=== PATIENT | female | born 1970 | race Two or more races ===

== ENCOUNTER 2024-11-18 11:31 | Emergency (ER) | payer MEDICARE ==
[2024-11-18 11:38] VITALS: TEMP 98.2
[2024-11-18] MEDS: KETOROLAC 15 MG/ML 1 ML VIAL IVP STA (12:53)
[2024-11-18] MEDS: SODIUM CHLORIDE 0.9% 1,000 ML IV STA (12:53)
[2024-11-18] MEDS: methylPREDNISolone SOD SUCCI 125 MG/2 ML VIAL IV STA (12:55)
[2024-11-18] MEDS: LIDOCAINE 4% PATCH TOPICAL STA (12:57)
[2024-11-18 13:13] LABS: ALT 16 U/L (4-34); African American GFR (CKD) >90 (>60 ml/min/1.73 sqM); Albumin 4.3 g/dL (3.5-5.0); Anion Gap 7 mmol/L; Blood Urea Nitrogen 12 mg/dL (7-17); Calcium 9.6 mg/dL (8.4-10.2); Carbon Dioxide 25 mmol/L (22-30); Chloride 108 mmol/L (98-107); Glucose 98 mg/dL (74-99); Lipase 232 U/L (23-300); Non-African American GFR(CKD) >90 (>60 ml/min/1.73 sqM); Sodium 140 mmol/L (137-145); Total Bilirubin 1.2 mg/dL (0.2-1.3)
[2024-11-18 13:15] LABS: AST 38 U/L (14-36); Alkaline Phosphatase 34 U/L (38-126); Potassium 4.7 mmol/L (3.5-5.1)
--- NOTE | 2024-11-18 13:37 | CT ---
EXAMINATION TYPE: CT abdomen pelvis wo con DATE OF EXAM: 11/18/2024 COMPARISON: None CLINICAL INDICATION: Female, 54 years old with history of right back/flank pain; PHH, Right back and fkank pain TECHNIQUE: CT scan of the abdomen and pelvis is performed without oral or IV contrast. CT DLP: [address] CTDI: mGy Automated exposure control for dose reduction was used. FINDINGS: Within the limitations of a non-contrast study, the following observations are made. There is a tight cluster of small nodules in the right lower lobe posteriorly. The largest nodule in the cluster is approximately 6.6 mm. This is most likely infectious in CT thorax may be indicated. Gallbladder is normal and there is no gallstone, wall thickening, pericholecystic fluid or distentio n. There is no biliary ductal dilatation. There is no organomegaly of the liver, pancreas, spleen or adrenal glands. There are no renal calcifications or hydronephrosis. The caliber of the abdominal aorta is normal and there is no retroperitoneal adenopathy or hemorrhage . The bowel loops are normal in caliber is no evidence of obstruction. No inflammatory changes are iden tified in the mesentery and there is no free intraperitoneal air or fluid. There is no pelvic mass, free fluid, abscess or adenopathy. The appendix is visualized and is normal. The osseous structures and soft tissues are unremarkable. IMPRESSION: 1.No acute changes within the abdomen or pelvis. 2. Small cluster of small nodules in the right lower lobe posteriorly. This is a nonspecific finding and could represent acute or chronic inflammatory process. If clinically indicated CT thorax to evalu ate the lung parenchyma in its entirety is recommended. [facility], Workstation: EVER 11/18/2024 1:35 PM
--- NOTE | 2024-11-18 13:43 | CT ---
EXAMINATION TYPE: CT lumbar spine wo con DATE OF EXAM: 11/18/2024 1:22 PM COMPARISON: None CLINICAL INDICATION: Female, 54 years old with history of right back/flank pain; PHH, Right back and flank pain TECHNIQUE: Unenhanced CT of the lumbar spine was performed. Bone and soft tissue window settings are submitted as well as coronal and sagittal reconstructions. CT DLP: [address] CTDI: mGy Automated exposure control for dose reduction was used. FINDINGS: The lumbar vertebral segments are normal in height and alignment and there is no fracture or subluxat ion. There is mild disc space narrowing and hypertrophic spurring at L4-5 consistent with mild degenerativ e disc disease. There is right lateral broad-based disc bulge at the L4-5 level mildly compromising t he right L4-5 neural foramina. There is no bony encroachment of neural foramina. There is no central canal stenosis. The paraspinal soft tissues are unremarkable. There is no significant facet degeneration. The visualized sacrum and SI joints are normal. IMPRESSION: Mild degenerative disease at the L4-5 level with mild encroachment of the right L4-5 neural foramina secondary to broad-based right lateral disc protrusion. [facility], , 11/18/2024 1:41 PM
[2024-11-18 14:16] LABS: Basophils # (A) 0.06 10*3/uL (0.00-0.10); Basophils % (A) 0.8 %; Eosinophils # (A) 0.09 10*3/uL (0.04-0.35); Eosinophils % (A) 1.2 %; HCT 39.6 % (37.2-46.3); HGB 13.6 g/dL (12.0-15.0); Lymphocytes # (A) 2.13 10*3/uL (0.90-5.00); MCH 30.8 pg (27.0-32.0); MCHC 34.3 g/dL (32.0-37.0); MCV 89.8 fL (80.0-97.0); Mean Platelet Volume 11.6 fL (9.5-12.2); Monocytes # (A) 0.38 10*3/uL (0.20-1.00); Monocytes % (A) 5.2 %; Neutrophils # (A) 4.66 10*3/uL (1.80-7.70); Neutrophils % (A) 63.5 %; Platelet Count 171 10*3/uL (140-440); RBC 4.41 10*6/uL (4.10-5.20); WBC 7.34 10*3/uL (4.50-10.00)
--- NOTE | 2024-11-18 14:40 | ED ---
General Adult HPI - General Chief complaint: Back Pain/Injury Stated complaint: back pain Time Seen by Provider: 11/18/24 12:15 Source: patient, RN notes reviewed, old records reviewed Mode of arrival: ambulatory Limitations: no limitations - History of Present Illness Initial comments: Patient is a 54-year-old female presents emergency department complaining of atraumatic right sided back pain. Has a history of sciatica on that side but st ates this seems worse. States it radiates down the posterior right leg as well as up the right side of her back towards her mid back. Does endorse worse with movement. No obvious dysuria or hematuria. No vaginal discharge or bleeding. States it does radiate into her right flank mildly. Denies any nausea or vomiting. Denies any headaches or weakness. No obvious injuries. Has a history of anemia. Originally was seen at urgent care who recommended coming here for further workup. Urinalysis done at urgent care was normal. Has a history of chronic back pain but states this is different and somewhat worse.Patient denies any red flag symptoms, including denying lower extremity paralysis, denying saddle paresthesias, denying urinary or bowel incontinence or retention. - Related Data Previous Rx's Medication Instructions Recorded Cyclobenzaprine [Flexeril] 5 mg PO TID PRN 5 Days #15 tablet 11/18/24 Lidocaine 5% Patch [Lidoderm 5% 1 patch TOPICAL DAILY PRN 14 Days 11/18/24 Patch] #14 patch Allergies Allergy/AdvReac Type Severity Reaction Status Date / Time morphine Allergy Rash/Hives Verified 11/18/24 11:38 Review of Systems ROS Statement: Those systems with pertinent positive or pertinent negative responses have been documented in the HPI. Review of Systems: CONST: Denies fever EYES: Denies blurry vision ENT: Denies nasal congestion C/V: Denies Chest pain RESP: Denies shortness of breath GI: Denies abdominal pain : Denies dysuria SKIN: Denies rash. MSK: Endorses back pain NEURO: Denies headache ROS Other: All systems not noted in ROS Statement are negative. Past Medical History Additional Past Medical History / Comment(s): autoimmune anemia History of Any Multi-Drug Resistant Organisms: None Reported Past Psychological History: ADD/ADHD, Anxiety, Depression, PTSD Smoking Status: Vaper Past Alcohol Use History: None Reported Past Drug Use History: Marijuana General Exam - General Exam Comments Initial Comments: General: Appears in mild distress secondary to back pain. HEAD: Normal with no signs of head trauma. EYES: EOMI ENT: Hearing grossly intact, normal oropharynx. RESPIRATORY: Clear breath sounds bilaterally. No wheezes, rales, or rhonchi. C/V: Regular rate and rhythm. S1 and S2 auscultated, peripheral pulses 2+ and i ntact throughout ABD: Abdomen is soft, nondistended. No significant flank tenderness. No guarding or rebound tenderness. No peritoneal signs. EXT: Normal range of motion, no obvious deformity. Mild midline lower lumbar spine tenderness to palpation. No step-offs or deformities appreciated. No thoracic or cervical spine tenderness to palpation. SKIN: No rashes or lesions observed on exposed skin. NEURO: Alert and oriented x 4. No focal deficits. Limitations: no limitations Course Vital Signs 11/18/24 11/18/24 11:33 14:54 Temperature 98.2 F 98.2 F Pulse Rate 60 74 Respiratory 18 20 Rate Blood Pressure 131/78 129/78 O2 Sat by Pulse 98 99 Oximetry Medical Decision Making - Medical Decision Making Was pt. sent in by a medical professional or institution (, PA, DOOR SLINGER, urgent care, hospital, or longterm...) When possible be specific @ -Sent by urgent care for further evaluation for back pain. Did you speak to anyone other than the patient for history (EMS, parent, family, police, friend...)? What history was obtained from this source @ -No Did you review nursing and triage notes (agree or disagree)? Why? @ -I reviewed and agree with nursing and triage notes Were old charts reviewed (outside hosp., previous admission, EMS record, old EKG, old radiological studies, urgent care reports/EKG's, longterm records)? Report findings @ -No old charts were reviewed Differential Diagnosis (chest pain, altered mental status, abdominal pain women, abdominal pain men, vaginal bleeding, weakness, fever, dyspnea, syncope, headache, dizziness, GI bleed, back pain, seizure, CVA, palpatations, mental health, musculoskeletal)? @ -Differential Back Pain: Strain, zoster, cauda equina syndrome, epidural abscess, vertebral osteomyelitis, discitis, fracture, subluxation, disc herniation, DJD, spinal stenosis, dissection, AAA, pancreatitis, peptic ulcer disease, pyelonephritis, kidney stone, this is not meant to be an all-inclusive list. EKG interpreted by me (3pts min.). @ -As above X-rays interpreted by me (1pt min.). @ -None done CT interpreted by me (1pt min.). @ -CT imaging of the abdomen pelvis negative for any obvious acute intra- abdominal issue to explain her pain. It does show some pulmonary nodules in the inferior lung on the right. CT lumbar spine shows chronic degeneration as well as a disc herniation primarily on the right at L4-L5. U/S interpreted by me (1pt. min.). @ -None done What testing was considered but not performed or refused? (CT, X-rays, U/S, labs)? Why? @ -None What meds were considered but not given or refused? Why? @ -None Did you discuss the management of the patient with other professionals (professionals i.e. , PA, DOOR SLINGER, lab, RT, psych nurse, social services, dough maker, teacher, student liaison officer, test case developer)? Give summary @ -No Was smoking cessation discussed for >3mins.? @ -No Was critical care preformed (if so, how long)? @ -No Were there social determinants of health that impacted care today? How? (Homelessness, low income, unemployed, alcoholism, drug addiction, transportation, low edu. Level, literacy, decrease access to med. care, custodial, rehab)? @ -No Was there de-escalation of care discussed even if they declined (Discuss DNR or withdrawal of care, Hospice)? DNR status @ -No What co-morbidities impacted this encounter? (DM, HTN, Smoking, COPD, CAD, Cancer, CVA, ARF, Chemo, Hep., AIDS, mental health diagnosis, sleep apnea, morbid obesity)? @ -None Was patient admitted / discharged? Hospital course, mention meds given and route , prescriptions, significant lab abnormalities, going to OR and other pertinent info. @ -Based on patient's presentation and physical exam, presents emergency department with acute on chronic back pain. Seems to be more sciatic in nature however urgent care center for further evaluation of possible kidney stone as she does have some right flank pain as well. She had recently obtained a urinalysis at urgent care and does not want to repeat 1. She does have the results which are normal. No evidence of bleeding or infection. Will obtain basic labs as well as CT imaging abdomen pelvis without contrast and CT lumbar spine. She was in agreement this plan. She is given emergency medications as well as IV fluids. Vitals are within acceptable limits. Imaging remarkable for disc herniation at L4-L5 which is likely source of her pain. Also incidental finding of pulmonary nodules. Patient made aware of the pulmonary nodules and I recommended repeat imaging in 3 to 6 months. She is giv en pulmonology outpatient follow-up as well as information regarding PCPs. She expressed understanding of this. CT abdomen pelvis reveals no obvious acute intra-abdominal process to explain her symptoms. Labs are within acceptable limits. On reevaluation, I discussed with the patient that I do believe that her pain is likely secondary to musculoskeletal causes, likely disc herniation at L4-L5. I recommended that she continue with analgesia medications at home and she can follow-up with her PCP. She is new to the area and she is given a list. She has a back specialist she already sees and I recommend follow-up with them. She will be given prescriptions for Flexeril and lidocaine patches. She has no red flag symptoms and no concern for cauda equina syndrome at this time. She was in agreement with this plan. She expressed understanding regarding the pulmonary nodules and will follow-up. I instructed the patient to follow up with their PCP in the next 1-3 days. I explained that the patient should return to the emergency department if they experience any worsening symptoms. Strict return precautions were discussed with the patient. The patient expressed understanding of these instructions. I answered all questions that the patient had. The patient was discharged home in good condition with their prescriptions and follow up information. Undiagnosed new problem with uncertain prognosis? @ -No Drug Therapy requiring intensive monitoring for toxicity (Heparin, Nitro, Ins ulin, Cardizem)? @ -No Were any procedures done? @ -No Diagnosis/symptom? @ -Back pain, herniated disc, lumbar radiculopathy, pulmonary nodules of unknown etiology Acute, or Chronic, or Acute on Chronic? @ -Acute Uncomplicated (without systemic symptoms) or Complicated (systemic symptoms)? @ -Uncomplicated Side effects of treatment? @ -No Exacerbation, Progression, or Severe Exacerbation? @ -No Poses a threat to life or bodily function? How? (Chest pain, USA, MS, pneumonia, PE, COPD, DKA, ARF, appy, cholecystitis, CVA, Diverticulitis, Homicidal, Suicidal, threat to staff... and all critical care pts) @ -Unlikely at this time - Lab Data Result diagrams: 11/18/24 12:47 11/18/24 12:47 Lab Results 11/18/24 11/18/24 11/18/24 Range/Units 12:47 12:47 12:47 WBC 7.34 (4.50-10.00) 10*3/uL RBC 4.41 (4.10-5.20) 10*6/uL Hgb 13.6 (12.0-15.0) g/dL Hct 39.6 (37.2-46.3) % MCV 89.8 (80.0-97.0) fL MCH 30.8 (27.0-32.0) pg MCHC 34.3 (32.0-37.0) g/dL Plt Count 171 (140-440) 10*3/uL MPV 11.6 (9.5-12.2) fL Immature Gran % (Auto) 0.3 % Neutrophils % 63.5 % Lymphocytes % 29.0 % Monocytes % 5.2 % Eosinophils % 1.2 % Basophils % 0.8 % Immature Gran # 0.02 (0.00-0.04) 10*3/uL Neutrophils # 4.66 (1.80-7.70) 10*3/uL Lymphocytes # 2.13 (0.90-5.00) 10*3/uL Monocytes # 0.38 (0.20-1.00) 10*3/uL Eosinophils # 0.09 (0.04-0.35) 10*3/uL Basophils # 0.06 (0.00-0.10) 10*3/uL Sodium 140 (137-145) mmol/L Potassium 4.7 (3.5-5.1) mmol/L Chloride 108 H (98-107) mmol/L Carbon Dioxide 25 (22-30) mmol/L Anion Gap 7 mmol/L BUN 12 (7-17) mg/dL Creatinine 0.53 (0.52-1.04) mg/dL Est GFR (CKD-EPI)AfAm >90 (>60 ml/min/1.73 sqM) Est GFR (CKD-EPI)NonAf >90 (>60 ml/min/1.73 sqM) Glucose 98 (74-99) mg/dL Plasma Lactic Acid Zac 1.0 (0.7-2.0) mmol/L Calcium 9.6 (8.4-10.2) mg/dL Total Bilirubin 1.2 (0.2-1.3) mg/dL AST 38 H (14-36) U/L ALT 16 (4-34) U/L Alkaline Phosphatase 34 L (38-126) U/L Total Protein 7.0 (6.3-8.2) g/dL Albumin 4.3 (3.5-5.0) g/dL Lipase 232 (23-300) U/L Disposition Clinical Impression: Back pain, Herniated disc, Lumbar radiculopathy, Pulmonary nodules Disposition: HOME SELF-CARE Condition: Good Instructions (If sedation given, give patient instructions): Lumbar Disc Herniation (ED), Acute Low Back Pain (ED), Pulmonary Nodules (ED) Additional Instructions: Your back pain is likely secondary to lumbar radiculopathy from herniated disc. Use pain meds as needed. Follow-up with your physician/chiropractor for it. You did have pulmonary nodules today under CT imaging. Follow-up with your PCP for repeat imaging in the next 1 to 3 months. Return to the ER for any worsening symptoms. Prescriptions: Cyclobenzaprine [Flexeril] 5 mg PO TID PRN 5 Days #15 tablet PRN Reason: Pain Lidocaine 5% Patch [Lidoderm 5% Patch] 1 patch TOPICAL DAILY PRN 14 Days #14 patch PRN Reason: Pain Is patient prescribed a controlled substance at d/c from ED?: Yes When asked, does pt state using other controlled substances?: No If prescribed controlled substance>3 days was MAPS reviewed?: Prescribed <3 Days If opioid is for acute pain is fill amount 7 days or less?: Yes If Rx opioid, was Start Talking consent form obtained?: Yes Referrals: [facility] [NON-STAFF] - 1-2 days (Contact a primary care office to become established with a provider.) [facility] [NON-STAFF] - 1-2 days None,Stated [Primary Care Provider] - 1-2 days Nikolas Garcia MD [STAFF PHYSICIAN] - 1-2 days Forms: Area PCPs Time of Disposition: 14:39
[2024-11-18] MEDS: ACET/COD 300 MG/30 MG STARTER PACK 6 TAB BTL PO STA (14:49)
[2024-11-18 14:55] VITALS: BP 129/78; PULSE 74; RESP 20
== END 2024-11-18 14:55 | disposition home or self-care (01) ==
LOC: EC 11:31
DX: M54.9 Dorsalgia, unspecified (principal); G89.29 Other chronic pain; R91.1 Solitary pulmonary nodule; M51.16 Intervertebral disc disorders with radiculopathy, lumbar region; F17.290 Nicotine dependence, other tobacco product, uncomplicated; Z88.5 Allergy status to narcotic agent
CPT/HCPCS: 36415; 80053; 83605; 83690; 85025; 72131; 74176; 99284; 96374; 96375; 96361; J1885; J2919